=== PATIENT | male | born 1935 | race Caucasian/White ===

== ENCOUNTER 2017-07-22 15:04 | Observation (INO) | payer MEDICARE, OTHER ==
[2017-07-22] MEDS: SOD CHLORIDE 0.9% 1,000 ML IV (17:08)
[2017-07-22 17:22] LABS: ADD MAN DIFF? NO
[2017-07-22 17:33] LABS: BASOPHIL # 0.1 10^3/ul (0.0-0.1); BASOPHILS % 0.5 % (0.0-2.0); EOSINOPHILS # 0.6 10^3/ul (0.0-0.5); EOSINOPHILS % 5.6 % (0.0-7.0); HEMOGLOBIN 9.8 g/dl (14.0-18.0); LYMPHOCYTES # 2.1 10^3/ul (0.8-2.9); LYMPHOCYTES % 19.4 % (15.0-51.0); MEAN CORPUSCULAR HEMOGLOBIN 26.6 pg (29.0-33.0); MEAN CORPUSCULAR HGB CONC 30.6 g/dl (32.0-37.0); MEAN CORPUSCULAR VOLUME 86.7 fl (82.0-101.0); MEAN PLATELET VOLUME 11.5 fl (7.4-10.4); MONOCYTE # 0.6 10^3/ul (0.3-0.9); MONOCYTES % 5.8 % (0.0-11.0); NEUTROPHIL # 7.3 10^3/ul (1.6-7.5); NEUTROPHILS % 66.6 % (39.0-77.0); PLATELET COUNT 263 10^3/UL (140-415); RED BLOOD COUNT 3.69 10^6/ul (4.70-6.10); RED CELL DISTRIBUTION WIDTH 18.4 % (11.5-14.5)
[2017-07-22 17:47] LABS: ALANINE AMINOTRANSFERASE 26 IU/L (13-69); ALBUMIN 3.8 g/dl (3.3-4.9); ALBUMIN/GLOBULIN RATIO 0.88; ALKALINE PHOSPHATASE 59 IU/L (42-121); ANION GAP 15 (8-16); ASPARTATE AMINO TRANSFERASE 16 IU/L (15-46); BILIRUBIN,INDIRECT 0.4 mg/dl (0-1.1); BILIRUBIN,TOTAL 0.4 mg/dl (0.2-1.3); BLOOD UREA NITROGEN 27 mg/dl (7-20); CALCIUM 9.5 mg/dl (8.4-10.2); CARBON DIOXIDE 31 mmol/L (21-31); CHLORIDE 100 mmol/L (97-110); CREATININE 0.83 mg/dl (0.61-1.24); GLUCOSE 117 mg/dl (70-220); LIPASE 54 U/L (23-300); POTASSIUM 4.7 mmol/L (3.5-5.1); SODIUM 141 mmol/L (135-144); TOTAL PROTEIN 8.1 g/dl (6.1-8.1)
[2017-07-22 17:48] LABS: INR 0.97; PARTIAL THROMBOPLASTIN TIME 29.3 Sec (25.0-35.0)
[2017-07-22] MEDS: DIATR MEGLU/DIATRIZOATE SODIUM 30 ML SOLUTION PO (17:52)
[2017-07-22] MEDS: DIATR MEGLU/DIATRIZOATE SODIUM 120 ML BTL (17:52)
[2017-07-22 18:02] LABS: TROPONIN-I < 0.012 ng/ml (0.00-0.12)
[2017-07-22 18:39] LABS: ADD UMIC YES; UR AMORPHOUS CRYSTAL FEW /HPF (NONE SEEN); UR ASCORBIC ACID 40 mg/dL (NEGATIVE); UR BACTERIA MODERATE /HPF (NONE SEEN); UR BILIRUBIN (Dip) NEGATIVE (NEGATIVE); UR BLOOD (Dip) NEGATIVE (NEGATIVE); UR CLARITY CLOUDY (CLEAR); UR COLOR YELLOW (YELLOW); UR GLUCOSE (Dip) NEGATIVE (NEGATIVE); UR KETONES (Dip) NEGATIVE (NEGATIVE); UR LEUKOCYTE ESTERASE (Dip) 3+ Leu/ul (NEGATIVE); UR NITRITE (Dip) POSITIVE (NEGATIVE); UR RBC 11 /HPF (0-5); UR SPECIFIC GRAVITY (Dip) 1.012 (1.003-1.030); UR SQUAMOUS EPITHELIAL CELL FEW /HPF (FEW); UR TOTAL PROTEIN (Dip) 1+ mg/dl (NEGATIVE); UR UROBILINOGEN (Dip) NEGATIVE (NEGATIVE); UR WBC 165 /HPF (0-5)
[2017-07-22] MEDS: CEFEPIME 1GM/50 ML (PMX) 50 ML IVPB (19:06)
[2017-07-22] MEDS ORDERED: ONDANSETRON 4 MG INJ IV (19:30)
[2017-07-22] MEDS ORDERED: NACL 0.9% 3 ML SYG IV (19:30)
[2017-07-22] MEDS ORDERED: ACETAMINOPHEN 325 MG TAB PO (19:30)
[2017-07-22] MEDS ORDERED: morphine 2 MG INJ IV (19:30)
[2017-07-22] MEDS ORDERED: CEFEPIME 1GM/50 ML (PMX) 50 ML IVPB (23:00)
[2017-07-22] MEDS: NACL 3% FOR INHALATION 15 ML NEBU NEB (23:04)
[2017-07-23 00:07] LABS: AADO2 Arterial 148.2 mmHg (7.0-24.0); Allen Test ACCEPTAB; Arterial Base Excess 2.3 mmol/L (-3.0-3); Arterial Blood Gas Oxygen Sat 96.3 mmHG (95.0-100.0); Arterial COHb 0.3 % (0.0-3.0); Arterial Fraction of Oxyhgb 95.6 % (93.0-99.0); Arterial HCO3 27.1 mmol/L (22.0-26.0); Arterial MetHb 0.4 % (0.0-1.5); Arterial Total Hemglobin 10.5 g/dl (12.0-18.0); Arterial pCO2 42.8 mmhg (35-45); MODE VENT - AC; Site Right Radial
[2017-07-23] MEDS: FAMOTIDINE 20 MG INJ IV ×3 (01:07→20:47)
[2017-07-23] MEDS: SOD CHLORIDE 0.9% 1,000 ML IV ×2 (01:07→17:42)
[2017-07-23 05:19] LABS: ADD MAN DIFF? NO
[2017-07-23 05:22] LABS: BASOPHIL # 0.1 10^3/ul (0.0-0.1); BASOPHILS % 0.4 % (0.0-2.0); EOSINOPHILS # 0.5 10^3/ul (0.0-0.5); EOSINOPHILS % 4.1 % (0.0-7.0); HEMATOCRIT 32.7 % (42.0-52.0); LYMPHOCYTES # 1.8 10^3/ul (0.8-2.9); LYMPHOCYTES % 15.3 % (15.0-51.0); MEAN CORPUSCULAR HGB CONC 30.6 g/dl (32.0-37.0); MEAN CORPUSCULAR VOLUME 88.1 fl (82.0-101.0); MEAN PLATELET VOLUME 10.9 fl (7.4-10.4); MONOCYTE # 0.7 10^3/ul (0.3-0.9); MONOCYTES % 6.1 % (0.0-11.0); NEUTROPHIL # 8.4 10^3/ul (1.6-7.5); NEUTROPHILS % 72.5 % (39.0-77.0); PLATELET COUNT 285 10^3/UL (140-415); RED BLOOD COUNT 3.71 10^6/ul (4.70-6.10); RED CELL DISTRIBUTION WIDTH 18.1 % (11.5-14.5)
[2017-07-23 05:22] LABS: WHITE BLOOD COUNT 11.6 10^3/ul (4.8-10.8)
[2017-07-23 06:02] LABS: ALANINE AMINOTRANSFERASE 21 IU/L (13-69); ALBUMIN 3.8 g/dl (3.3-4.9); ALBUMIN/GLOBULIN RATIO 0.97; ALKALINE PHOSPHATASE 59 IU/L (42-121); ANION GAP 16 (8-16); ASPARTATE AMINO TRANSFERASE 15 IU/L (15-46); BILIRUBIN,INDIRECT 0.6 mg/dl (0-1.1); BILIRUBIN,TOTAL 0.6 mg/dl (0.2-1.3); BLOOD UREA NITROGEN 22 mg/dl (7-20); CARBON DIOXIDE 29 mmol/L (21-31); CHLORIDE 104 mmol/L (97-110); CREATININE 0.86 mg/dl (0.61-1.24); GLUCOSE 123 mg/dl (70-220); POTASSIUM 4.5 mmol/L (3.5-5.1); SODIUM 144 mmol/L (135-144); TOTAL PROTEIN 7.7 g/dl (6.1-8.1)
[2017-07-23] MEDS: CEFEPIME 1GM/50 ML (PMX) 50 ML IVPB ×2 (08:27→20:47)
[2017-07-23] MEDS: ENOXAPARIN 40 MG/0.4 ML SYG SC (08:36)
[2017-07-23] MEDS ORDERED: GLUCAGON 1 MG INJ IM (13:00)
[2017-07-23] MEDS ORDERED: DEXTROSE 50% 50 ML SYRINGE IV ×2 (13:00)
[2017-07-23] MEDS ORDERED: GLUCOSE GEL 15 GRAM TUBE PO ×2 (13:00)
[2017-07-23] MEDS ORDERED: GLUCOSE GEL 15 GRAM TUBE BUCCAL (13:00)
[2017-07-23] MEDS: DOCUSATE SODIUM 100 MG CAP PO (13:13)
[2017-07-23] MEDS: FAMOTIDINE 20 MG TAB GTB (13:13)
[2017-07-23] MEDS: AMLODIPINE 10 MG TAB GTB (13:14)
[2017-07-23] MEDS: metFORMIN 500 MG TAB GTB (17:35)
[2017-07-23] MEDS: FERROUS SULFATE 60 MG/ML 5ML CUP GTB (20:47)
[2017-07-23] MEDS: SENNA TAB GTB (20:47)
[2017-07-23] MEDS: DOXAZOSIN 4 MG TAB GTB (20:48)
[2017-07-24] MEDS: SOD CHLORIDE 0.9% 1,000 ML IV (01:00)
[2017-07-24 05:47] LABS: ADD MAN DIFF? NO
[2017-07-24 05:52] LABS: BASOPHILS % 0.4 % (0.0-2.0); EOSINOPHILS # 0.5 10^3/ul (0.0-0.5); HEMATOCRIT 28.5 % (42.0-52.0); HEMOGLOBIN 8.7 g/dl (14.0-18.0); LYMPHOCYTES # 1.5 10^3/ul (0.8-2.9); LYMPHOCYTES % 15.5 % (15.0-51.0); MEAN CORPUSCULAR HEMOGLOBIN 26.9 pg (29.0-33.0); MEAN CORPUSCULAR HGB CONC 30.5 g/dl (32.0-37.0); MEAN PLATELET VOLUME 11.2 fl (7.4-10.4); MONOCYTE # 0.7 10^3/ul (0.3-0.9); MONOCYTES % 7.3 % (0.0-11.0); NEUTROPHIL # 6.8 10^3/ul (1.6-7.5); NEUTROPHILS % 70.3 % (39.0-77.0); PLATELET COUNT 262 10^3/UL (140-415); RED BLOOD COUNT 3.24 10^6/ul (4.70-6.10); RED CELL DISTRIBUTION WIDTH 18.4 % (11.5-14.5)
[2017-07-24 05:52] LABS: WHITE BLOOD COUNT 9.7 10^3/ul (4.8-10.8)
[2017-07-24 06:24] LABS: ANION GAP 14 (8-16); BLOOD UREA NITROGEN 20 mg/dl (7-20); CALCIUM 8.4 mg/dl (8.4-10.2); CARBON DIOXIDE 28 mmol/L (21-31); CHLORIDE 107 mmol/L (97-110); CREATININE 0.89 mg/dl (0.61-1.24); GLUCOSE 128 mg/dl (70-220); POTASSIUM 4.1 mmol/L (3.5-5.1); SODIUM 145 mmol/L (135-144)
[2017-07-24] MEDS: FAMOTIDINE 20 MG TAB GTB ×2 (08:18→20:48)
[2017-07-24] MEDS: CEFEPIME 1GM/50 ML (PMX) 50 ML IVPB ×2 (08:18→20:48)
[2017-07-24] MEDS: AMLODIPINE 10 MG TAB GTB (08:18)
[2017-07-24] MEDS: metFORMIN 500 MG TAB GTB ×2 (08:18→17:16)
[2017-07-24] MEDS: DOCUSATE SODIUM 100 MG CAP PO (08:18)
[2017-07-24] MEDS: SENNA TAB GTB ×2 (08:18→20:48)
[2017-07-24] MEDS: FERROUS SULFATE 60 MG/ML 5ML CUP GTB ×2 (08:18→20:48)
[2017-07-24] MEDS: ENOXAPARIN 40 MG/0.4 ML SYG SC (08:19)
[2017-07-24] MEDS: FAMOTIDINE 20 MG INJ IV (08:20)
[2017-07-24] MEDS: DOXAZOSIN 4 MG TAB GTB (20:48)
[2017-07-25] MEDS: SOD CHLORIDE 0.9% 1,000 ML IV (05:03)
[2017-07-25 06:14] LABS: ADD MAN DIFF? NO
[2017-07-25 06:31] LABS: BASOPHILS % 0.4 % (0.0-2.0); EOSINOPHILS # 0.7 10^3/ul (0.0-0.5); EOSINOPHILS % 6.5 % (0.0-7.0); HEMATOCRIT 30.1 % (42.0-52.0); HEMOGLOBIN 9.1 g/dl (14.0-18.0); LYMPHOCYTES # 1.9 10^3/ul (0.8-2.9); LYMPHOCYTES % 18.7 % (15.0-51.0); MEAN CORPUSCULAR HEMOGLOBIN 27.1 pg (29.0-33.0); MEAN CORPUSCULAR HGB CONC 30.2 g/dl (32.0-37.0); MEAN CORPUSCULAR VOLUME 89.6 fl (82.0-101.0); MEAN PLATELET VOLUME 11.4 fl (7.4-10.4); MONOCYTE # 0.7 10^3/ul (0.3-0.9); MONOCYTES % 6.6 % (0.0-11.0); NEUTROPHIL # 6.7 10^3/ul (1.6-7.5); NEUTROPHILS % 66.4 % (39.0-77.0); PLATELET COUNT 266 10^3/UL (140-415); RED BLOOD COUNT 3.36 10^6/ul (4.70-6.10); RED CELL DISTRIBUTION WIDTH 18.2 % (11.5-14.5)
[2017-07-25 06:31] LABS: WHITE BLOOD COUNT 10.1 10^3/ul (4.8-10.8)
[2017-07-25 06:48] LABS: ALANINE AMINOTRANSFERASE 27 IU/L (13-69); ALBUMIN 3.2 g/dl (3.3-4.9); ALBUMIN/GLOBULIN RATIO 0.88; ALKALINE PHOSPHATASE 52 IU/L (42-121); ANION GAP 12 (8-16); ASPARTATE AMINO TRANSFERASE 13 IU/L (15-46); BILIRUBIN,INDIRECT 0.3 mg/dl (0-1.1); BILIRUBIN,TOTAL 0.3 mg/dl (0.2-1.3); BLOOD UREA NITROGEN 21 mg/dl (7-20); CALCIUM 8.6 mg/dl (8.4-10.2); CARBON DIOXIDE 30 mmol/L (21-31); CHLORIDE 110 mmol/L (97-110); CREATININE 0.83 mg/dl (0.61-1.24); GLUCOSE 114 mg/dl (70-220); POTASSIUM 4.3 mmol/L (3.5-5.1); SODIUM 148 mmol/L (135-144); TOTAL PROTEIN 6.8 g/dl (6.1-8.1)
[2017-07-25] MEDS: metFORMIN 500 MG TAB GTB ×2 (07:56→17:27)
[2017-07-25] MEDS: FERROUS SULFATE 60 MG/ML 5ML CUP GTB (08:49)
[2017-07-25] MEDS: DOCUSATE SODIUM 100 MG CAP PO (08:49)
[2017-07-25] MEDS: CEFEPIME 1GM/50 ML (PMX) 50 ML IVPB (08:49)
[2017-07-25] MEDS: AMLODIPINE 10 MG TAB GTB (08:50)
[2017-07-25] MEDS: SENNA TAB GTB (08:50)
[2017-07-25] MEDS: FAMOTIDINE 20 MG TAB GTB (08:50)
[2017-07-25] MEDS: ENOXAPARIN 40 MG/0.4 ML SYG SC (08:54)
[2017-07-26] MEDS ORDERED: LEVOFLOXACIN 500 MG TAB GTB (06:00)
== END 2017-07-25 18:55 ==
LOC: E/R 15:04 → REC 07-23 13:56 → ICU 18:46
DX: G93.40 Encephalopathy, unspecified (principal); Z43.1 Encounter for attention to gastrostomy; R13.10 Dysphagia, unspecified; N39.0 Urinary tract infection, site not specified; J96.11 Chronic respiratory failure with hypoxia; Z93.6 Other artificial openings of urinary tract status; Z99.11 Dependence on respirator [ventilator] status; I10 Essential (primary) hypertension; E86.0 Dehydration; G83.4 Cauda equina syndrome; Z86.73 Personal history of transient ischemic attack (TIA), and cerebral infarction without residual deficits; Z87.891 Personal history of nicotine dependence
CPT/HCPCS: 36415; 36600; 71045; 74018; 80048; 80053; 81001; 82803; 83690; 84484; 85025; 85610; 85730; 87081; 87086; 89220; 93005; 94002; 94003; 96374; 99285-25; G0378

== ENCOUNTER 2018-07-29 14:31 | Inpatient (IN) | payer MEDICARE, OTHER ==
[2018-07-29] MEDS ORDERED: ONDANSETRON 4 MG INJ IV ×2 (15:00→22:00)
[2018-07-29] MEDS ORDERED: ACETAMINOPHEN 325 MG TAB PO (15:00)
[2018-07-29] MEDS: PIPER-TAZO 3.375 GM IV (PMX) 100 ML IVPB (15:33)
[2018-07-29 15:42] LABS: ADD MAN DIFF? NO
[2018-07-29 15:43] LABS: ABNORMAL IP MESSAGE 1; BASOPHIL # 0.1 10^3/ul (0.0-0.1); BASOPHILS % 0.5 % (0.0-2.0); EOSINOPHILS # 1.3 10^3/ul (0.0-0.5); HEMATOCRIT 31.6 % (42.0-52.0); HEMOGLOBIN 8.9 g/dl (14.0-18.0); LYMPHOCYTES # 1.9 10^3/ul (0.8-2.9); MEAN CORPUSCULAR HEMOGLOBIN 22.8 pg (29.0-33.0); MEAN CORPUSCULAR HGB CONC 28.2 g/dl (32.0-37.0); MEAN CORPUSCULAR VOLUME 80.8 fl (82.0-101.0); MEAN PLATELET VOLUME 10.8 fl (7.4-10.4); MONOCYTE # 0.9 10^3/ul (0.3-0.9); MONOCYTES % 4.8 % (0.0-11.0); NEUTROPHIL # 14.6 10^3/ul (1.6-7.5); NEUTROPHILS % 76.3 % (39.0-77.0); PLATELET COUNT 349 10^3/UL (140-415); POSITIVE DIFF @See below; RED BLOOD COUNT 3.91 10^6/ul (4.70-6.10); RED CELL DISTRIBUTION WIDTH 19.6 % (11.5-14.5)
[2018-07-29 15:43] LABS: WHITE BLOOD COUNT 19.1 10^3/ul (4.8-10.8)
[2018-07-29 16:00] LABS: ALANINE AMINOTRANSFERASE 31 IU/L (13-69); ALBUMIN 3.4 g/dl (3.3-4.9); ALBUMIN/GLOBULIN RATIO 0.94; ALKALINE PHOSPHATASE 62 IU/L (42-121); ANION GAP 8 (5-13); ASPARTATE AMINO TRANSFERASE 21 IU/L (15-46); BILIRUBIN,INDIRECT 0.2 mg/dl (0-1.1); BILIRUBIN,TOTAL 0.2 mg/dl (0.2-1.3); BLOOD UREA NITROGEN 36 mg/dl (7-20); CALCIUM 9.6 mg/dl (8.4-10.2); CARBON DIOXIDE 27 mmol/L (21-31); CHLORIDE 103 mmol/L (97-110); CREATININE 0.86 mg/dl (0.61-1.24); GLUCOSE 131 mg/dl (70-220); POTASSIUM 4.4 mmol/L (3.5-5.1); SODIUM 138 mmol/L (135-144)
[2018-07-29 16:02] LABS: INR 1.07; PT RATIO 1.1
[2018-07-29 16:03] LABS: PARTIAL THROMBOPLASTIN TIME 29.2 Sec (23.0-35.0)
[2018-07-29 16:14] LABS: TROPONIN-I 0.243 ng/ml (0.000-0.120)
[2018-07-29 16:44] LABS: ADD UMIC YES; UR ASCORBIC ACID 20 mg/dL (NEGATIVE); UR BACTERIA FEW /HPF (NONE SEEN); UR BILIRUBIN (Dip) NEGATIVE (NEGATIVE); UR BLOOD (Dip) 1+ mg/dL (NEGATIVE); UR BUDDING YEAST FEW /HPF (NONE SEEN); UR CLARITY SLIGHTLY CLOUDY (CLEAR); UR COLOR YELLOW (YELLOW); UR GLUCOSE (Dip) NEGATIVE (NEGATIVE); UR KETONES (Dip) NEGATIVE (NEGATIVE); UR LEUKOCYTE ESTERASE (Dip) 3+ Leu/ul (NEGATIVE); UR NITRITE (Dip) NEGATIVE (NEGATIVE); UR RBC 10 /HPF (0-5); UR SPECIFIC GRAVITY (Dip) 1.017 (1.003-1.030); UR SQUAMOUS EPITHELIAL CELL FEW /HPF (FEW); UR TOTAL PROTEIN (Dip) NEGATIVE (NEGATIVE); UR UROBILINOGEN (Dip) NEGATIVE (NEGATIVE); UR WBC 61 /HPF (0-5)
[2018-07-29 16:57] LABS: AADO2 Arterial 88.1 mmHg (7.0-24.0); Allen Test ACCEPTAB; Arterial COHb 0.3 % (0.0-3.0); Arterial Fraction of Oxyhgb 94.5 % (93.0-99.0); Arterial HCO3 27.4 mmol/L (22.0-26.0); Arterial MetHb 0.2 % (0.0-1.5); Arterial pCO2 41.2 mmhg (35-45); MODE VENT - AC; Site Right Radial
[2018-07-29] MEDS: ASPIRIN 300 MG SUPP PR (18:04)
[2018-07-29] MEDS: SOD CHLORIDE 0.9% 1,000 ML IV ×2 (18:05→22:43)
[2018-07-29 19:56] LABS: LACTIC ACID 1.1 mmol/L (0.5-2.0)
[2018-07-29] MEDS ORDERED: PENDING SANTYL ORDER FOR WOUND CARE XX (22:30)
[2018-07-30] MEDS ORDERED: GLUCOSE GEL 15 GRAM TUBE BUCCAL (02:00)
[2018-07-30] MEDS ORDERED: GLUCAGON 1 MG INJ IM (02:00)
[2018-07-30] MEDS: ACCU-CHEK XX (02:00)
[2018-07-30] MEDS ORDERED: DEXTROSE 50% 50 ML SYRINGE IV ×2 (02:00)
[2018-07-30] MEDS ORDERED: GLUCOSE GEL 15 GRAM TUBE PO ×2 (02:00)
[2018-07-30] MEDS ORDERED: INSULIN ASPART [NOVOLOG] 3 ML PEN SC ×3 (05:00→08:30)
[2018-07-30 06:55] LABS: ADD MAN DIFF? NO
[2018-07-30 07:03] LABS: WHITE BLOOD COUNT 12.2 10^3/ul (4.8-10.8)
[2018-07-30 07:03] LABS: ABNORMAL IP MESSAGE 1; BASOPHIL # 0.1 10^3/ul (0.0-0.1); BASOPHILS % 0.5 % (0.0-2.0); EOSINOPHILS # 1.1 10^3/ul (0.0-0.5); EOSINOPHILS % 8.8 % (0.0-7.0); HEMATOCRIT 24.3 % (42.0-52.0); LYMPHOCYTES # 1.9 10^3/ul (0.8-2.9); LYMPHOCYTES % 15.3 % (15.0-51.0); MEAN CORPUSCULAR HEMOGLOBIN 22.5 pg (29.0-33.0); MEAN CORPUSCULAR HGB CONC 28.4 g/dl (32.0-37.0); MEAN CORPUSCULAR VOLUME 79.2 fl (82.0-101.0); MEAN PLATELET VOLUME 11.7 fl (7.4-10.4); MONOCYTE # 0.8 10^3/ul (0.3-0.9); MONOCYTES % 6.8 % (0.0-11.0); NEUTROPHIL # 8.2 10^3/ul (1.6-7.5); NEUTROPHILS % 67.3 % (39.0-77.0); PLATELET COUNT 302 10^3/UL (140-415); POSITIVE DIFF @See below; RED BLOOD COUNT 3.07 10^6/ul (4.70-6.10); RED CELL DISTRIBUTION WIDTH 19.7 % (11.5-14.5)
[2018-07-30 07:10] LABS: HEMOGLOBIN 6.9 g/dl (14.0-18.0)
[2018-07-30 07:13] LABS: HEMOGLOBIN A1C 5.8 % (0-5.9)
[2018-07-30 07:15] LABS: LACTIC ACID 0.9 mmol/L (0.5-2.0)
[2018-07-30 07:15] LABS: ALANINE AMINOTRANSFERASE 32 IU/L (13-69); ALBUMIN 2.5 g/dl (3.3-4.9); ALBUMIN/GLOBULIN RATIO 0.92; ALKALINE PHOSPHATASE 38 IU/L (42-121); ANION GAP 6 (5-13); ASPARTATE AMINO TRANSFERASE 22 IU/L (15-46); BILIRUBIN,INDIRECT 0.4 mg/dl (0-1.1); BILIRUBIN,TOTAL 0.4 mg/dl (0.2-1.3); BLOOD UREA NITROGEN 34 mg/dl (7-20); CALCIUM 8.8 mg/dl (8.4-10.2); CARBON DIOXIDE 26 mmol/L (21-31); CHLORIDE 107 mmol/L (97-110); GLUCOSE 91 mg/dl (70-220); POTASSIUM 4.4 mmol/L (3.5-5.1); SODIUM 139 mmol/L (135-144); TOTAL PROTEIN 5.2 g/dl (6.1-8.1)
[2018-07-30] MEDS: SOD CHLORIDE 0.9% 1,000 ML IV ×2 (08:30→18:00)
[2018-07-30] MEDS: INSULIN ASPART [NOVOLOG] 3 ML PEN SC ×4 (08:30→21:00)
[2018-07-30 11:42] LABS: TROPONIN-I 0.215 ng/ml (0.000-0.120)
[2018-07-30] MEDS ORDERED: VANCOMYCIN IV PER PHARMACY XX (13:00)
[2018-07-30] MEDS: LIDOCAINE 1% (MPF) 5 ML VIAL SC (13:00)
[2018-07-30] MEDS: PIPER-TAZO 3.375 GM IV (PMX) 100 ML IVPB ×2 (13:41→21:56)
[2018-07-30] MEDS: FLUCONAZOLE 100 MG/50 ML (PMX) 50 ML IVPB (14:37)
[2018-07-30] MEDS: VANCOMYCIN HCL 2 GM in SOD CHLORIDE 0.9% 500 ML IVPB (14:37)
[2018-07-30] MEDS: PANTOPRAZOLE IV 80 MG in SOD CHLORIDE 0.9% 100 ML IV (18:49)
[2018-07-30] MEDS: PANTOPRAZOLE 40 MG INJ IV (18:49)
[2018-07-31] MEDS: INSULIN ASPART [NOVOLOG] 3 ML PEN SC ×6 (01:00→22:07)
[2018-07-31] MEDS: ACCU-CHEK XX (01:14)
[2018-07-31] MEDS: SOD CHLORIDE 0.9% 1,000 ML IV ×2 (02:59→14:29)
[2018-07-31] MEDS: PANTOPRAZOLE IV 80 MG in SOD CHLORIDE 0.9% 100 ML IV ×3 (03:04→23:30)
[2018-07-31] MEDS: VANCOMYCIN 1 GM 250 ML IVPB ×3 (03:06→23:01)
[2018-07-31] MEDS: morphine 2 MG INJ IV (04:08)
[2018-07-31] MEDS: FUROSEMIDE 20 MG INJ IV (04:44)
[2018-07-31] MEDS: PIPER-TAZO 3.375 GM IV (PMX) 100 ML IVPB ×3 (06:02→22:20)
[2018-07-31 07:04] LABS: ADD MAN DIFF? NO
[2018-07-31 07:11] LABS: ABNORMAL IP MESSAGE 1; BASOPHIL # 0.1 10^3/ul (0.0-0.1); BASOPHILS % 0.4 % (0.0-2.0); EOSINOPHILS # 1.1 10^3/ul (0.0-0.5); EOSINOPHILS % 7.9 % (0.0-7.0); HEMOGLOBIN 7.6 g/dl (14.0-18.0); LYMPHOCYTES # 1.1 10^3/ul (0.8-2.9); LYMPHOCYTES % 8.1 % (15.0-51.0); MEAN CORPUSCULAR HEMOGLOBIN 22.4 pg (29.0-33.0); MEAN CORPUSCULAR HGB CONC 28.1 g/dl (32.0-37.0); MEAN CORPUSCULAR VOLUME 79.6 fl (82.0-101.0); MEAN PLATELET VOLUME 11.7 fl (7.4-10.4); MONOCYTE # 0.8 10^3/ul (0.3-0.9); MONOCYTES % 5.8 % (0.0-11.0); NEUTROPHIL # 10.7 10^3/ul (1.6-7.5); NEUTROPHILS % 76.5 % (39.0-77.0); PLATELET COUNT 332 10^3/UL (140-415); POSITIVE DIFF @See below; RED BLOOD COUNT 3.39 10^6/ul (4.70-6.10); RED CELL DISTRIBUTION WIDTH 19.9 % (11.5-14.5)
[2018-07-31 07:12] LABS: RETICULOCYTE RBC 3.37
[2018-07-31 07:12] LABS: RETICULOCYTE COUNT # 0.109 X10^6 (0.020-0.110); RETICULOCYTE COUNT % 3.2 % (0.5-1.5)
[2018-07-31 07:34] LABS: ANION GAP 9 (5-13); BLOOD UREA NITROGEN 27 mg/dl (7-20); CALCIUM 8.4 mg/dl (8.4-10.2); CARBON DIOXIDE 26 mmol/L (21-31); CHLORIDE 107 mmol/L (97-110); CREATININE 0.98 mg/dl (0.61-1.24); GLUCOSE 98 mg/dl (70-220); POTASSIUM 3.8 mmol/L (3.5-5.1); SODIUM 142 mmol/L (135-144)
[2018-07-31 07:36] LABS: LACTATE DEHYDROGENASE 672 IU/L (313-618)
[2018-07-31 07:36] LABS: IRON 21 ug/dl (35-150)
[2018-07-31 07:45] LABS: % IRON SATURATION 7 % SAT (22-52); TOTAL IRON BINDING CAPACITY 299 ug/dl (241-421)
[2018-07-31 08:05] LABS: FERRITIN 50.8 ng/ml (11.1-264.0)
[2018-07-31 11:49] LABS: INR 1.11; PARTIAL THROMBOPLASTIN TIME 24.4 Sec (23.0-35.0); PROTIME 14.4 Sec (11.9-14.9); PT RATIO 1.1
[2018-07-31] MEDS: SOD FERRIC GLUC COMPLX 125 MG in SOD CHLORIDE 0.9% 100 ML IVPB (14:20)
[2018-07-31] MEDS: CASPOFUNGIN 70 MG in SOD CHLORIDE 0.9% 250 ML IVPB (16:45)
[2018-07-31 17:41] LABS: IMMEDIATE SPIN CROSSMATCH 1 3
[2018-07-31] MEDS: SOD CHLORIDE 0.9% 250 ML IV* (17:57)
[2018-08-01] MEDS: INSULIN ASPART [NOVOLOG] 3 ML PEN SC ×5 (01:00→17:49)
[2018-08-01] MEDS: ACCU-CHEK XX (01:04)
[2018-08-01] MEDS: VANCOMYCIN 1 GM 250 ML IVPB ×2 (03:00→12:33)
[2018-08-01] MEDS: PANTOPRAZOLE IV 80 MG in SOD CHLORIDE 0.9% 100 ML IV (03:00)
[2018-08-01] MEDS: PIPER-TAZO 3.375 GM IV (PMX) 100 ML IVPB ×3 (05:36→21:04)
[2018-08-01] MEDS: SOD CHLORIDE 0.9% 1,000 ML IV ×3 (10:03→21:04)
[2018-08-01] MEDS ORDERED: hydrALAzine 20 MG INJ IV (10:30)
[2018-08-01] MEDS ORDERED: ACETAMINOPHEN 500 MG TAB PO (10:30)
[2018-08-01] MEDS ORDERED: ONDANSETRON 4 MG INJ IV ×2 (10:30→12:30)
[2018-08-01] MEDS ORDERED: HYDROmorphONE 1 MG/5 ML IV SYRINGE IV ×3 (10:30→12:30)
[2018-08-01] MEDS ORDERED: FENTAnyl 50 MCG/ML VIAL IV (10:30)
[2018-08-01] MEDS ORDERED: DIPHENHYDRAMINE 50 MG INJ IV (10:30)
[2018-08-01] MEDS ORDERED: ALBUTEROL 0.083% (NEB) 2.5 MG/3 ML AMP HHN (10:30)
[2018-08-01] MEDS ORDERED: LABETALOL HCL 20MG INJ IV (10:30)
[2018-08-01] MEDS ORDERED: morphine (1 MG/ML) 10ML SYRINGE IV (10:30)
[2018-08-01] MEDS: FENTAnyl 50 MCG/ML VIAL (11:47)
[2018-08-01] MEDS: LIDOCAINE 2% (SDV) 5 ML INJ (12:27)
[2018-08-01] MEDS: PROPOFOL 20 ML (12:27)
[2018-08-01 14:11] LABS: PROTEIN, TOTAL 5.9 g/dL (6.1-8.1)
[2018-08-01] MEDS: SOD FERRIC GLUC COMPLX 125 MG in SOD CHLORIDE 0.9% 100 ML IVPB (14:56)
[2018-08-01] MEDS: CASPOFUNGIN 50 MG in SOD CHLORIDE 0.9% 250 ML IVPB (16:38)
[2018-08-01] MEDS: PANTOPRAZOLE 40 MG INJ IV (17:46)
[2018-08-01] MEDS: BALSAM PERU/CASTOR OIL 60 GM TUBE TOP (21:04)
[2018-08-02] MEDS: VANCOMYCIN 1 GM 250 ML IVPB ×2 (00:31→13:02)
[2018-08-02] MEDS: ACCU-CHEK XX (01:40)
[2018-08-02] MEDS: SOD CHLORIDE 0.9% 1,000 ML IV ×3 (05:13→23:27)
[2018-08-02] MEDS: INSULIN ASPART [NOVOLOG] 3 ML PEN SC ×5 (06:00→23:32)
[2018-08-02] MEDS: PIPER-TAZO 3.375 GM IV (PMX) 100 ML IVPB ×3 (06:31→21:10)
[2018-08-02] MEDS: PANTOPRAZOLE 40 MG INJ IV ×2 (06:32→16:41)
[2018-08-02 08:29] LABS: ADD MAN DIFF? NO
[2018-08-02 08:45] LABS: WHITE BLOOD COUNT 10.3 10^3/ul (4.8-10.8)
[2018-08-02 08:45] LABS: ABNORMAL IP MESSAGE 1; BASOPHIL # 0.1 10^3/ul (0.0-0.1); BASOPHILS % 0.5 % (0.0-2.0); EOSINOPHILS # 0.9 10^3/ul (0.0-0.5); EOSINOPHILS % 8.9 % (0.0-7.0); HEMOGLOBIN 7.9 g/dl (14.0-18.0); LYMPHOCYTES # 1.4 10^3/ul (0.8-2.9); LYMPHOCYTES % 13.3 % (15.0-51.0); MEAN CORPUSCULAR HEMOGLOBIN 23.2 pg (29.0-33.0); MEAN CORPUSCULAR HGB CONC 28.2 g/dl (32.0-37.0); MEAN CORPUSCULAR VOLUME 82.1 fl (82.0-101.0); MEAN PLATELET VOLUME 11.2 fl (7.4-10.4); MONOCYTE # 0.7 10^3/ul (0.3-0.9); MONOCYTES % 6.3 % (0.0-11.0); NEUTROPHIL # 7.2 10^3/ul (1.6-7.5); NEUTROPHILS % 70.2 % (39.0-77.0); PLATELET COUNT 311 10^3/UL (140-415); POSITIVE DIFF @See below; RED BLOOD COUNT 3.41 10^6/ul (4.70-6.10); RED CELL DISTRIBUTION WIDTH 19.6 % (11.5-14.5)
[2018-08-02 08:59] LABS: CREATINE KINASE 32 IU/L (23-200)
[2018-08-02 09:12] LABS: CK INDEX 3.8; CK-MB 1.21 ng/ml (0.0-2.4); TROPONIN-I 0.095 ng/ml (0.000-0.120)
[2018-08-02 09:16] LABS: ANION GAP 7 (5-13); BLOOD UREA NITROGEN 18 mg/dl (7-20); CARBON DIOXIDE 21 mmol/L (21-31); CHLORIDE 116 mmol/L (97-110); CREATININE 0.87 mg/dl (0.61-1.24); GLUCOSE 118 mg/dl (70-220); POTASSIUM 4.2 mmol/L (3.5-5.1); SODIUM 144 mmol/L (135-144)
[2018-08-02] MEDS: BALSAM PERU/CASTOR OIL 60 GM TUBE TOP ×2 (09:30→20:33)
[2018-08-02] MEDS: LIDOCAINE 1% (MPF) 5 ML VIAL (10:48)
[2018-08-02 13:37] LABS: HAPTOGLOBIN 159 mg/dL (43-212)
[2018-08-02] MEDS: SOD FERRIC GLUC COMPLX 125 MG in SOD CHLORIDE 0.9% 100 ML IVPB (14:30)
[2018-08-02] MEDS: CASPOFUNGIN 50 MG in SOD CHLORIDE 0.9% 250 ML IVPB (15:32)
[2018-08-02 15:56] LABS: ALBUMIN 2.8 g/dL (3.8-4.8); ALPHA-1-GLOBULINS 0.4 g/dL (0.2-0.3); ALPHA-2-GLOBULINS 0.6 g/dL (0.5-0.9); BETA 2 GLOBULINS 0.5 g/dL (0.2-0.5); BETA GLOBULINS 0.5 g/dL (0.4-0.6); GAMMA GLOBULINS 1.2 g/dL (0.8-1.7)
[2018-08-03] MEDS: VANCOMYCIN 1 GM 250 ML IVPB ×2 (00:30→16:11)
[2018-08-03 00:48] LABS: VANCOMYCIN,TROUGH 27.9 ug/ml (10.0-20.0)
[2018-08-03] MEDS: ACCU-CHEK XX (02:00)
[2018-08-03] MEDS: SOD CHLORIDE 0.9% 1,000 ML IV ×2 (02:00→10:53)
[2018-08-03] MEDS: INSULIN ASPART [NOVOLOG] 3 ML PEN SC ×3 (06:00→17:43)
[2018-08-03] MEDS: PANTOPRAZOLE 40 MG INJ IV ×2 (06:04→17:43)
[2018-08-03] MEDS: PIPER-TAZO 3.375 GM IV (PMX) 100 ML IVPB ×3 (06:05→21:40)
[2018-08-03] MEDS: BALSAM PERU/CASTOR OIL 60 GM TUBE TOP ×2 (09:00→21:00)
[2018-08-03] MEDS: SOD FERRIC GLUC COMPLX 125 MG in SOD CHLORIDE 0.9% 100 ML IVPB (11:55)
[2018-08-03] MEDS: CASPOFUNGIN 50 MG in SOD CHLORIDE 0.9% 250 ML IVPB (14:55)
[2018-08-03 22:17] LABS: ERYTHROPOIETIN 14.9 mIU/mL (2.6-18.5)
[2018-08-04] MEDS: ACCU-CHEK XX (02:00)
[2018-08-04] MEDS: PIPER-TAZO 3.375 GM IV (PMX) 100 ML IVPB ×3 (05:49→21:43)
[2018-08-04] MEDS: PANTOPRAZOLE 40 MG INJ IV ×2 (05:49→17:49)
[2018-08-04] MEDS: INSULIN ASPART [NOVOLOG] 3 ML PEN SC ×4 (06:00→17:49)
[2018-08-04] MEDS: BALSAM PERU/CASTOR OIL 60 GM TUBE TOP ×2 (09:38→20:51)
[2018-08-04] MEDS: SOD FERRIC GLUC COMPLX 125 MG in SOD CHLORIDE 0.9% 100 ML IVPB (12:15)
[2018-08-04] MEDS: CASPOFUNGIN 50 MG in SOD CHLORIDE 0.9% 250 ML IVPB (15:25)
[2018-08-04 16:24] LABS: ADD MAN DIFF? NO
[2018-08-04 16:27] LABS: WHITE BLOOD COUNT 10.4 10^3/ul (4.8-10.8)
[2018-08-04 16:27] LABS: ABNORMAL IP MESSAGE 1; BASOPHILS % 0.4 % (0.0-2.0); EOSINOPHILS # 0.8 10^3/ul (0.0-0.5); EOSINOPHILS % 7.4 % (0.0-7.0); HEMATOCRIT 30.8 % (42.0-52.0); HEMOGLOBIN 8.7 g/dl (14.0-18.0); LYMPHOCYTES # 1.2 10^3/ul (0.8-2.9); LYMPHOCYTES % 11.4 % (15.0-51.0); MEAN CORPUSCULAR HGB CONC 28.2 g/dl (32.0-37.0); MEAN CORPUSCULAR VOLUME 85.1 fl (82.0-101.0); MEAN PLATELET VOLUME 11.3 fl (7.4-10.4); MONOCYTE # 0.6 10^3/ul (0.3-0.9); MONOCYTES % 5.4 % (0.0-11.0); NEUTROPHIL # 7.8 10^3/ul (1.6-7.5); NEUTROPHILS % 74.7 % (39.0-77.0); PLATELET COUNT 280 10^3/UL (140-415); POSITIVE DIFF @See below; RED BLOOD COUNT 3.62 10^6/ul (4.70-6.10); RED CELL DISTRIBUTION WIDTH 21.2 % (11.5-14.5)
[2018-08-04 16:46] LABS: ANION GAP 5 (5-13); BLOOD UREA NITROGEN 15 mg/dl (7-20); CALCIUM 8.1 mg/dl (8.4-10.2); CARBON DIOXIDE 23 mmol/L (21-31); CHLORIDE 118 mmol/L (97-110); CREATININE 0.95 mg/dl (0.61-1.24); GLUCOSE 122 mg/dl (70-220); POTASSIUM 3.5 mmol/L (3.5-5.1); SODIUM 146 mmol/L (135-144)
[2018-08-04] MEDS: VANCOMYCIN 1 GM 250 ML IVPB (17:25)
[2018-08-05] MEDS: ACCU-CHEK XX (01:42)
[2018-08-05] MEDS: PIPER-TAZO 3.375 GM IV (PMX) 100 ML IVPB ×3 (05:51→21:37)
[2018-08-05] MEDS: PANTOPRAZOLE 40 MG INJ IV ×2 (05:51→17:02)
[2018-08-05] MEDS: INSULIN ASPART [NOVOLOG] 3 ML PEN SC ×4 (05:58→17:03)
[2018-08-05] MEDS: BALSAM PERU/CASTOR OIL 60 GM TUBE TOP ×2 (08:39→21:25)
[2018-08-05 08:46] LABS: ADD MAN DIFF? NO
[2018-08-05 08:54] LABS: ABNORMAL IP MESSAGE 1; BASOPHIL # 0.1 10^3/ul (0.0-0.1); BASOPHILS % 0.5 % (0.0-2.0); EOSINOPHILS # 0.8 10^3/ul (0.0-0.5); EOSINOPHILS % 7.8 % (0.0-7.0); HEMATOCRIT 30.5 % (42.0-52.0); HEMOGLOBIN 8.4 g/dl (14.0-18.0); LYMPHOCYTES # 1.4 10^3/ul (0.8-2.9); LYMPHOCYTES % 13.9 % (15.0-51.0); MEAN CORPUSCULAR HEMOGLOBIN 23.7 pg (29.0-33.0); MEAN CORPUSCULAR HGB CONC 27.5 g/dl (32.0-37.0); MEAN CORPUSCULAR VOLUME 86.2 fl (82.0-101.0); MEAN PLATELET VOLUME 11.5 fl (7.4-10.4); MONOCYTE # 0.6 10^3/ul (0.3-0.9); NEUTROPHIL # 7.1 10^3/ul (1.6-7.5); PLATELET COUNT 283 10^3/UL (140-415); POSITIVE DIFF @See below; RED BLOOD COUNT 3.54 10^6/ul (4.70-6.10); RED CELL DISTRIBUTION WIDTH 21.5 % (11.5-14.5)
[2018-08-05 09:16] LABS: CREATININE 0.94 mg/dl (0.61-1.24)
[2018-08-05 09:16] LABS: BLOOD UREA NITROGEN 15 mg/dl (7-20)
[2018-08-05 09:18] LABS: ANION GAP 4 (5-13); BLOOD UREA NITROGEN 15 mg/dl (7-20); CALCIUM 8.4 mg/dl (8.4-10.2); CARBON DIOXIDE 22 mmol/L (21-31); CHLORIDE 120 mmol/L (97-110); CREATININE 0.97 mg/dl (0.61-1.24); GLUCOSE 119 mg/dl (70-220); POTASSIUM 3.8 mmol/L (3.5-5.1); SODIUM 146 mmol/L (135-144)
[2018-08-05 09:45] LABS: HEPATITIS B SURFACE ANTIGEN NEGATIVE (NEGATIVE)
[2018-08-05 10:02] LABS: HEPATITIS C VIRAL ANTIBODY NEGATIVE (NEGATIVE)
[2018-08-05] MEDS: CASPOFUNGIN 50 MG in SOD CHLORIDE 0.9% 250 ML IVPB (14:48)
[2018-08-05] MEDS: FUROSEMIDE 20 MG INJ IV (14:54)
[2018-08-05] MEDS: VANCOMYCIN 1 GM 250 ML IVPB (17:03)
[2018-08-06] MEDS: ACCU-CHEK XX (02:00)
[2018-08-06] MEDS: PANTOPRAZOLE 40 MG INJ IV ×2 (05:50→18:02)
[2018-08-06] MEDS: PIPER-TAZO 3.375 GM IV (PMX) 100 ML IVPB ×2 (05:50→14:16)
[2018-08-06] MEDS: INSULIN ASPART [NOVOLOG] 3 ML PEN SC ×4 (06:00→18:00)
[2018-08-06] MEDS: BALSAM PERU/CASTOR OIL 60 GM TUBE TOP ×2 (08:20→21:59)
[2018-08-06] MEDS: CASPOFUNGIN 50 MG in SOD CHLORIDE 0.9% 250 ML IVPB (16:10)
[2018-08-06] MEDS: VANCOMYCIN 1 GM 250 ML IVPB (16:33)
[2018-08-06] MEDS ORDERED: AMIKACIN IV PER PHARMACY XX (18:30)
[2018-08-06] MEDS: AMIKACIN 1,000 MG in SOD CHLORIDE 0.9% 100 ML IVPB (22:10)
[2018-08-07] MEDS: ACCU-CHEK XX (02:00)
[2018-08-07] MEDS: PANTOPRAZOLE 40 MG INJ IV ×2 (05:46→17:40)
[2018-08-07] MEDS: INSULIN ASPART [NOVOLOG] 3 ML PEN SC ×4 (05:46→17:37)
[2018-08-07] MEDS: FUROSEMIDE 20 MG INJ IV (08:15)
[2018-08-07] MEDS: BALSAM PERU/CASTOR OIL 60 GM TUBE TOP ×2 (08:16→20:13)
[2018-08-07 08:44] LABS: CREATININE 0.95 mg/dl (0.61-1.24)
[2018-08-07 08:44] LABS: BLOOD UREA NITROGEN 16 mg/dl (7-20)
[2018-08-07] MEDS: CASPOFUNGIN 50 MG in SOD CHLORIDE 0.9% 250 ML IVPB (14:22)
[2018-08-07 15:18] LABS: ADD MAN DIFF? NO
[2018-08-07 15:22] LABS: ABNORMAL IP MESSAGE 1; BASOPHIL # 0.1 10^3/ul (0.0-0.1); BASOPHILS % 0.6 % (0.0-2.0); EOSINOPHILS # 0.8 10^3/ul (0.0-0.5); EOSINOPHILS % 8.9 % (0.0-7.0); HEMATOCRIT 32.1 % (42.0-52.0); LYMPHOCYTES # 1.5 10^3/ul (0.8-2.9); LYMPHOCYTES % 15.6 % (15.0-51.0); MEAN CORPUSCULAR HEMOGLOBIN 23.9 pg (29.0-33.0); MEAN CORPUSCULAR VOLUME 85.4 fl (82.0-101.0); MEAN PLATELET VOLUME 11.2 fl (7.4-10.4); MONOCYTE # 0.4 10^3/ul (0.3-0.9); MONOCYTES % 4.6 % (0.0-11.0); NEUTROPHIL # 6.5 10^3/ul (1.6-7.5); NEUTROPHILS % 69.9 % (39.0-77.0); PLATELET COUNT 262 10^3/UL (140-415); POSITIVE DIFF @See below; RED BLOOD COUNT 3.76 10^6/ul (4.70-6.10)
[2018-08-07 15:22] LABS: WHITE BLOOD COUNT 9.4 10^3/ul (4.8-10.8)
[2018-08-07 15:41] LABS: ANION GAP 4 (5-13); BLOOD UREA NITROGEN 16 mg/dl (7-20); CALCIUM 8.6 mg/dl (8.4-10.2); CARBON DIOXIDE 25 mmol/L (21-31); CHLORIDE 116 mmol/L (97-110); CREATININE 0.92 mg/dl (0.61-1.24); GLUCOSE 116 mg/dl (70-220); POTASSIUM 3.8 mmol/L (3.5-5.1); SODIUM 145 mmol/L (135-144)
[2018-08-08] MEDS: ACCU-CHEK XX (01:12)
[2018-08-08] MEDS: PANTOPRAZOLE 40 MG INJ IV ×2 (05:55→17:48)
[2018-08-08] MEDS: INSULIN ASPART [NOVOLOG] 3 ML PEN SC ×4 (06:00→17:48)
[2018-08-08 11:08] LABS: ADD MAN DIFF? NO
[2018-08-08] MEDS: FUROSEMIDE 20 MG INJ IV (11:08)
[2018-08-08] MEDS: BALSAM PERU/CASTOR OIL 60 GM TUBE TOP ×2 (11:08→22:20)
[2018-08-08 11:15] LABS: WHITE BLOOD COUNT 7.6 10^3/ul (4.8-10.8)
[2018-08-08 11:15] LABS: ABNORMAL IP MESSAGE 1; BASOPHIL # 0.1 10^3/ul (0.0-0.1); BASOPHILS % 0.7 % (0.0-2.0); EOSINOPHILS # 0.6 10^3/ul (0.0-0.5); EOSINOPHILS % 8.1 % (0.0-7.0); HEMATOCRIT 31.2 % (42.0-52.0); HEMOGLOBIN 8.8 g/dl (14.0-18.0); LYMPHOCYTES # 1.6 10^3/ul (0.8-2.9); LYMPHOCYTES % 20.5 % (15.0-51.0); MEAN CORPUSCULAR HEMOGLOBIN 24.4 pg (29.0-33.0); MEAN CORPUSCULAR HGB CONC 28.2 g/dl (32.0-37.0); MEAN CORPUSCULAR VOLUME 86.4 fl (82.0-101.0); MEAN PLATELET VOLUME 11.3 fl (7.4-10.4); MONOCYTE # 0.4 10^3/ul (0.3-0.9); PLATELET COUNT 234 10^3/UL (140-415); POSITIVE DIFF @See below; RED BLOOD COUNT 3.61 10^6/ul (4.70-6.10)
[2018-08-08 11:52] LABS: IRON 22 ug/dl (35-150)
[2018-08-08 12:02] LABS: % IRON SATURATION 9 % SAT (22-52); TOTAL IRON BINDING CAPACITY 239 ug/dl (241-421)
[2018-08-08] MEDS: AMIKACIN 1,000 MG in SOD CHLORIDE 0.9% 250 ML IVPB (13:36)
[2018-08-08 13:43] LABS: FERRITIN 97.9 ng/ml (11.1-264.0)
[2018-08-08] MEDS: CASPOFUNGIN 50 MG in SOD CHLORIDE 0.9% 250 ML IVPB (15:56)
[2018-08-08] MEDS ORDERED: AMIKACIN 1,000 MG in SOD CHLORIDE 0.9% 250 ML IVPB (21:00)
[2018-08-09] MEDS: ACCU-CHEK XX (02:00)
[2018-08-09] MEDS: INSULIN ASPART [NOVOLOG] 3 ML PEN SC ×4 (06:00→17:09)
[2018-08-09] MEDS: PANTOPRAZOLE 40 MG INJ IV ×2 (06:22→17:09)
[2018-08-09 08:47] LABS: ADD MAN DIFF? NO
[2018-08-09 08:54] LABS: WHITE BLOOD COUNT 8.2 10^3/ul (4.8-10.8)
[2018-08-09 08:54] LABS: ABNORMAL IP MESSAGE 1; BASOPHIL # 0.1 10^3/ul (0.0-0.1); BASOPHILS % 0.6 % (0.0-2.0); EOSINOPHILS # 0.6 10^3/ul (0.0-0.5); EOSINOPHILS % 6.8 % (0.0-7.0); HEMATOCRIT 30.7 % (42.0-52.0); HEMOGLOBIN 8.7 g/dl (14.0-18.0); LYMPHOCYTES # 1.8 10^3/ul (0.8-2.9); LYMPHOCYTES % 21.5 % (15.0-51.0); MEAN CORPUSCULAR HEMOGLOBIN 24.2 pg (29.0-33.0); MEAN CORPUSCULAR HGB CONC 28.3 g/dl (32.0-37.0); MEAN CORPUSCULAR VOLUME 85.3 fl (82.0-101.0); MEAN PLATELET VOLUME 11.9 fl (7.4-10.4); MONOCYTE # 0.5 10^3/ul (0.3-0.9); MONOCYTES % 5.6 % (0.0-11.0); NEUTROPHIL # 5.3 10^3/ul (1.6-7.5); NEUTROPHILS % 64.9 % (39.0-77.0); PLATELET COUNT 241 10^3/UL (140-415); POSITIVE DIFF @See below
[2018-08-09 09:14] LABS: ANION GAP 8 (5-13); BLOOD UREA NITROGEN 20 mg/dl (7-20); CALCIUM 8.7 mg/dl (8.4-10.2); CARBON DIOXIDE 23 mmol/L (21-31); CHLORIDE 114 mmol/L (97-110); CREATININE 1.08 mg/dl (0.61-1.24); GLUCOSE 109 mg/dl (70-220); POTASSIUM 3.9 mmol/L (3.5-5.1); SODIUM 145 mmol/L (135-144)
[2018-08-09] MEDS: BALSAM PERU/CASTOR OIL 60 GM TUBE TOP ×2 (09:55→20:29)
[2018-08-09] MEDS: FUROSEMIDE 20 MG INJ IV (09:55)
[2018-08-09] MEDS: CASPOFUNGIN 50 MG in SOD CHLORIDE 0.9% 250 ML IVPB (15:27)
== END 2018-08-09 21:37 | DRG 870 ==
LOC: E/R 14:31 → TEL 14:44
PROC: 5A1955Z Respiratory Ventilation, Greater than 96 Consecutive Hours (ICD-10-PCS; principal; 2018-08-01 11:00)
PROC: 30233N1 Transfusion of Nonautologous Red Blood Cells into Peripheral Vein, Percutaneous Approach (ICD-10-PCS; 2018-08-01 11:00)
PROC: 0W3P8ZZ Control Bleeding in Gastrointestinal Tract, Via Natural or Artificial Opening Endoscopic (ICD-10-PCS; 2018-08-01 11:00)
PROC: 0W9G3ZX Drainage of Peritoneal Cavity, Percutaneous Approach, Diagnostic (ICD-10-PCS; 2018-08-01 11:00)
DX: A41.9 Sepsis, unspecified organism (principal); L89.313 Pressure ulcer of right buttock, stage 3; J18.9 Pneumonia, unspecified organism; K25.4 Chronic or unspecified gastric ulcer with hemorrhage; K29.71 Gastritis, unspecified, with bleeding; I21.A1 Myocardial infarction type 2; K65.2 Spontaneous bacterial peritonitis; J96.10 Chronic respiratory failure, unspecified whether with hypoxia or hypercapnia; G93.49 Other encephalopathy; G83.4 Cauda equina syndrome; I47.2 Ventricular tachycardia; R18.8 Other ascites; J90 Pleural effusion, not elsewhere classified; Z99.11 Dependence on respirator [ventilator] status; B37.49 Other urogenital candidiasis; R65.20 Severe sepsis without septic shock; R13.10 Dysphagia, unspecified; D63.8 Anemia in other chronic diseases classified elsewhere; I69.998 Other sequelae following unspecified cerebrovascular disease; M62.50 Muscle wasting and atrophy, not elsewhere classified, unspecified site; E66.9 Obesity, unspecified; Z68.38 Body mass index [BMI] 38.0-38.9, adult; K80.20 Calculus of gallbladder without cholecystitis without obstruction; N20.0 Calculus of kidney; K57.90 Diverticulosis of intestine, part unspecified, without perforation or abscess without bleeding; I25.10 Atherosclerotic heart disease of native coronary artery without angina pectoris; I44.30 Unspecified atrioventricular block; Z93.6 Other artificial openings of urinary tract status; Z93.1 Gastrostomy status; Z87.891 Personal history of nicotine dependence; D50.0 Iron deficiency anemia secondary to blood loss (chronic); R00.1 Bradycardia, unspecified; B96.1 Klebsiella pneumoniae [K. pneumoniae] as the cause of diseases classified elsewhere; Z93.0 Tracheostomy status; Z16.24 Resistance to multiple antibiotics; I11.0 Hypertensive heart disease with heart failure; I50.9 Heart failure, unspecified
CPT/HCPCS: 36415; 36430; 36600; 71045; 74018; 74176; 80048; 80053; 80150; 80202; 81001; 82550; 82553; 82565; 82607; 82668; 82728; 82803; 82962; 83010; 83036; 83540; 83605; 83615; 84155; 84165; 84443; 84484; 84520; 85025; 85045; 85610; 85730; 86803; 86850; 86900; 86901; 86920; 87040-91; 87070; 87081; 87086; 87340; 88104; 88107; 88305; 93005; 93306; 94002; 94003; 99285-25